=== PATIENT | female | born 1980 | race Caucasian/White ===

== ENCOUNTER 2020-02-01 08:46 | Day surgery (SDC) | payer OTHER ==
[~2020-02-01] VITALS: Ht 162.6 cm; Wt 84.4 kg
[~2020-02-01 08:46] MED LIST: CYCL10 PO; DIAZ5 PO; DICY20 PO; FERR325 PO; LINZESS145 MCG PO; MARIJUANA; MELO7.5 PO; MOBIC15 MG PO; OXYACE5T PO; Vitamin C100 M1 PO
--- NOTE | 2020-02-01 09:29 | NUR ---
02/01/20 0929 DOMENICO VILLARREAL ONE UNSUCCESSFUL BY GRANT SECOND UNSUCCESSFUL BY RN THIRD SUCCESSFUL BY RN IN RIGHT AC
== END 2020-02-01 11:16 | disposition home or self-care (01) ==
LOC: ORSCSDS 08:46
PROVIDERS: Student in an Organized Health Care Education/Training Program
PROC: 0DB98ZX Excision of Duodenum, Via Natural or Artificial Opening Endoscopic, Diagnostic (ICD-10-PCS; principal; 2020-02-01 10:00)
PROC: 0DB58ZX Excision of Esophagus, Via Natural or Artificial Opening Endoscopic, Diagnostic (ICD-10-PCS; principal; 2020-02-01 10:00)
PROC: 0DBN8ZX Excision of Sigmoid Colon, Via Natural or Artificial Opening Endoscopic, Diagnostic (ICD-10-PCS; principal; 2020-02-01 10:00)
PROC: 0DBM8ZX Excision of Descending Colon, Via Natural or Artificial Opening Endoscopic, Diagnostic (ICD-10-PCS; principal; 2020-02-01 10:00)
PROC: 0DB68ZX Excision of Stomach, Via Natural or Artificial Opening Endoscopic, Diagnostic (ICD-10-PCS; principal; 2020-02-01 10:00)
DX: R11.2 Nausea with vomiting, unspecified (principal); R10.9 Unspecified abdominal pain; R19.7 Diarrhea, unspecified; D12.4 Benign neoplasm of descending colon; K63.5 Polyp of colon; K64.4 Residual hemorrhoidal skin tags; K64.8 Other hemorrhoids; Z87.891 Personal history of nicotine dependence; Z79.899 Other long term (current) drug therapy
CPT/HCPCS: 88305; 88342; J2704; J7120